=== PATIENT | male | born 1965 | race Caucasian/White ===

== ENCOUNTER 2018-07-24 18:25 | Emergency (ER) | payer SELFPAY ==
--- NOTE | 2018-07-24 20:01 | EDM.PDOC ---
ED HPI GENERAL MEDICAL PROBLEM - General Chief Complaint: Cardiovascular Problem Stated Complaint: HIGH BLOOD PRESSURE Time Seen by Provider: 07/24/18 19:01 Source of Information: Reports: Patient History Limitations: Reports: No Limitations - History of Present Illness INITIAL COMMENTS - FREE TEXT/NARRATIVE: This is a 52-year-old male. He apparently is from [place] and before coming over to [place] his doctor put him on some blood pressure medication that he is only been on for a couple of months. He states that he has been going to [facility] usually after work and getting his blood pressure checked by their machine. He states that the top number is in the 130s and 140s in the bilateral number is in the 80s. He thinks this is too high and he comes to the ER for evaluation. The patient denies any other symptoms there's been no headaches no chest pain or shortness of breath no cough no congestion no other symptoms. But due to the elevated blood pressure that he believes he has he wants to be checked. He did not bring his blood pressure medications with him and he has no idea what he takes. He is going to call someone to see if they can't find the name of the blood pressure medication. When I was in there talking to him his blood pressure 138/92. He has no symptoms. He states he is feeling okay. - Related Data Allergies Allergy/AdvReac Type Severity Reaction Status Date / Time No Known Allergies Allergy Verified 07/24/18 18:39 Home Meds: Home Meds Losartan [Cozaar] 50 mg PO DAILY 07/24/18 [History] Losartan [Cozaar] 100 mg PO DAILY #30 tab 07/24/18 [Rx] Past Medical History Cardiovascular History: Reports: Hypertension Social & Family History - Tobacco Use Smoking Status *Q: Former Smoker Used Tobacco, but Quit: Yes Month/Year Tobacco Last Used: 2014 - Caffeine Use Caffeine Use: Reports: None - Recreational Drug Use Recreational Drug Use: No ED ROS GENERAL - Review of Systems Review Of Systems: See Below Constitutional: Reports: No Symptoms HEENT: Reports: No Symptoms Respiratory: Reports: No Symptoms Cardiovascular: Reports: Blood Pressure Problem. Denies: Edema, Lightheadedness , Palpitations Endocrine: Reports: No Symptoms GI/Abdominal: Reports: No Symptoms : Reports: No Symptoms Musculoskeletal: Reports: No Symptoms Skin: Reports: No Symptoms Neurological: Reports: No Symptoms Psychiatric: Reports: No Symptoms Hematologic/Lymphatic: Reports: No Symptoms ED EXAM, GENERAL - Physical Exam Exam: See Below Exam Limited By: No Limitations General Appearance: Alert, WD/WN, No Apparent Distress Eye Exam: Bilateral Eye: Normal Inspection Ears: Normal External Exam Nose: Normal Inspection Throat/Mouth: Normal Inspection, Normal Lips, Normal Voice, No Airway Compromise Head: Normocephalic Neck: Supple Respiratory/Chest: No Respiratory Distress, Lungs Clear, Normal Breath Sounds Cardiovascular: Regular Rate, Rhythm, No Murmur GI/Abdominal: Soft Back Exam: Normal Inspection, Full Range of Motion Extremities: Normal Inspection, Normal Range of Motion Neurological: Alert, Oriented, Normal Cognition Psychiatric: Normal Affect, Normal Mood Skin Exam: Warm, Dry Course - Vital Signs Last Recorded V/S: Last Vital Signs Temp 97.6 F 07/24/18 18:36 Pulse 63 07/24/18 18:36 Resp 20 07/24/18 18:36 BP 140/96 H 07/24/18 18:36 Pulse Ox 95 07/24/18 18:36 - Re-Assessments/Exams Free Text/Narrative Re-Assessment/Exam: 07/24/18 20:37 The patient found out he is taking losartan 50 mg in the morning. We are going to increase him to 100 mg in the morning and I will provide a prescription for him for 30 days and he is to follow-up with the family doctor to make sure this is sufficient for him. I did encourage him to continue to check his blood pressures as he is been doing so we can monitor to make sure the blood pressure comes down a little bit. Departure - Departure Time of Disposition: 20:38 Disposition: Home, Self-Care 01 Condition: Good Clinical Impression: Elevated blood pressure reading Prescriptions: Losartan [Cozaar] 100 mg PO DAILY #30 tab Referrals: Dulce Rolle PA-C [Physician Radar Scientist] - Forms: ED Department Discharge Additional Instructions: The Losartan that you have left is 50 mg tablets, you need to start taking 2 of those tablets in the morning until they're finished, the new prescription that I 'm giving you - you will only take one tablet in the morning because they are 100 mg tablets - do not get confused with this, you need to follow-up with a family doctor for recheck of your blood pressure after you've been on the new dose for about 2 weeks, you may continue to take your blood pressures at [facility] just to monitor them yourself, if there is any acute problems return to the ER.
== END 2018-07-24 21:00 | disposition home or self-care (01) ==
LOC: JD.ED 18:25
DX: I10 Essential (primary) hypertension (principal); Z87.891 Personal history of nicotine dependence; Z79.899 Other long term (current) drug therapy
CPT/HCPCS: 99283